=== PATIENT | female | born 1955 | race African-American/Black ===

== ENCOUNTER 2016-06-20 08:07 | Outpatient (CLI) | payer BC ==
[2016-06-20 08:40] LABS: ALT (SGPT) 17 U/L (0-55); AST (SGOT) 18 U/L (5-34); Albumin 3.9 g/dL (3.4-4.8); Alkaline Phosphatase 68 U/L (40-150); Anion Gap 14 mmol/L (10-20); BUN (Urea Nitrogen) 19 mg/dL (9.8-20.1); Bilirubin, Total 0.5 mg/dL (0.2-1.2); Calc. Creatinine Clearance 0 mL/min (70-130); Calcium 9.3 mg/dL (7.8-10.44); Carbon Dioxide 23 mmol/L (23-31); Cardiac Risk 3.7 (Less than 4.5); Chloride 107 mmol/L (98-107); Cholesterol 209 mg/dL (< 200 Desired); Estimated GFR-MDRD 58; Globulin 2.8 g/dL (2.4-3.5); Glucose 113 mg/dL (80-115); HDL Cholesterol 57 mg/dL (>60 Neg Risk); LDL Cholesterol, Calculated 138 mg/dL; Magnesium 2.1 mg/dL (1.6-2.6); Potassium 4.1 mmol/L (3.5-5.1); Protein, Total 6.7 g/dL (5.8-8.1); Sodium 140 mmol/L (136-145); Triglycerides 71 mg/dL (Less than 150)
[2016-06-20 18:36] LABS: Creatinine, Urine 75.28 mg/dL (47-110); Microalbumin Urine Less than 1.0 mg/dL (0.5-50.0); Microalbumin/Creat Ratio 13.3 mg/g (Less than 30)
[2016-06-23 05:42] LABS: HPV High Risk Type 16 Negative (Negative); HPV High Risk Type 18 Negative (Negative); HPV Other High Risk Types Negative (Negative)
== END 2016-06-20 08:08 | disposition home or self-care (01) ==
LOC: MADLABBHPM 08:07
PROVIDERS: ATTEND Family Medicine
DX: I10 Essential (primary) hypertension (principal)
CPT/HCPCS: 36415; 80053; 80061; 82043; 83735; 84100; 84443; 87624; 88142; G0123

== ENCOUNTER 2016-10-30 11:58 | Outpatient (CLI) | payer BC | END 2016-10-30 11:59 | disposition home or self-care (01) | LOC: MADEKG 11:58 | PROVIDERS: ATTEND Family Medicine | DX: R00.1 Bradycardia, unspecified (principal) | CPT/HCPCS: 93005; 93010 ==

== ENCOUNTER 2020-03-29 10:34 | Outpatient (CLI) | payer MEDICARE ==
--- NOTE | 2020-03-29 11:44 | RAD ---
PA CHEST AND RIGHT RIBS 4 VIEWS: Date: 03/29/2020 HISTORY: Fall back in November with persistent pain. FINDINGS: Heart size is within normal limits. There is atherosclerotic change of the aorta. Linear scarring is seen in both lung bases. No pneumothorax or pleural effusion. I do not appreciate any definite old or new rib fracture. IMPRESSION: Negative right ribs. POS: [facility]
== END 2020-03-29 10:35 | disposition home or self-care (01) ==
LOC: MADRAD 10:34
PROVIDERS: ATTEND Family Medicine
DX: R07.81 Pleurodynia (principal)